=== PATIENT | female | born 1990 | race Caucasian/White ===

== ENCOUNTER 2023-05-26 09:17 | Outpatient (AMB) | payer OTHER, SELFPAY ==
--- NOTE | 2023-05-26 09:28 | MHC.OFFWIV ---
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 Pt c/o R eye irritation.Pt states that its very painful and burning it started yesterday. Allergies amoxicillin Allergy (Verified 05/26/23 10:15) Vomiting morphine Allergy (Verified 05/26/23 10:15) full body paralysis Medication List - Last Reconciled 05/26/23 by Jony Baires MD erythromycin 0.5 inches ophthalmic (eye) TID Do you need a note to return to daycare/school/sports/work: Yes HPI MIDLEVEL PROVIDER/right eye irritation(lobby) HPI Details 32-year-old female presents to the office for a sick visit. Patient is reporting irritation in the right eye since yesterday. Symptoms started after she removed her contact lenses following along flight. Increased tearing in the right eye. Physical Exam Vital Signs: Last Vital Signs Pulse 74 05/26/23 09:35 BP 94/70 05/26/23 09:35 Pulse Ox 96 05/26/23 09:35 Oxygen Delivery Method Room Air 05/26/23 09:35 BMI result Body Mass Index 27.4 Eyes Other: Right eye: Conjunctival congestion. Corneas clear. No digital tenderness. Fluoro uptake is positive at the 6 o'clock position. Assessment & Plan Assessment & Plan (1) Corneal abrasion due to contact lens: Code(s): H18.829 - Corneal disorder due to contact lens, unspecified eye Qualifiers: Laterality: right Qualified Code(s): H18.821 - Corneal disorder due to contact lens, right eye Plan To not use contact lenses till all symptoms subside. Patient was instructed to follow-up here tomorrow for a recheck on the right eye. Erythromycin ointment has been called in. To be used 3 times a day. Medications: New erythromycin 0.5 inches ophthalmic (eye) TID 1 g 0RF Coding Level of Care Code New Pt Level 3 (61543) Diagnoses Corneal abrasion of right eye due to contact lens H18.821 Laterality: right
[2023-05-26 09:35] VITALS: BP 94/70; PULSE 74; O2SAT 96; BMI 27.4
== END 2023-05-26 10:25 | disposition home or self-care (01) ==
PROVIDERS: Visit Provider Internal Medicine
DX: H18.821 Corneal disorder due to contact lens, right eye (principal)
CPT/HCPCS: 99203

== ENCOUNTER 2023-05-27 09:40 | Outpatient (AMB) | payer OTHER, SELFPAY ==
--- NOTE | 2023-05-27 11:31 | MHC.OFFWIV ---
Intake Vital Signs 05/27/23 11:31 Height 5 ft 6 in Intake Visit Reasons: Follow up/Per Dr. Dorsey [phone] Allergies amoxicillin Allergy (Verified 05/26/23 10:15) Vomiting morphine Allergy (Verified 05/26/23 10:15) full body paralysis HPI Follow up/Per Dr. Dorsey [phone] HPI Details Patient was seen for a quick recheck. She reports 75% improvement in symptoms. It is not tearing or burning as yesterday. Physical Exam Eyes Other: Right eye: Mild erythematous congestion. No fluoro uptake. Assessment & Plan Assessment & Plan (1) Corneal abrasion: Code(s): S05.00XA - Injury of conjunctiva and corneal abrasion without foreign body, unspecified eye, initial encounter Plan Symptoms have resolved. Continue erythromycin ointment for 1 more day. Coding Level of Care Code Est Pt Level 3 (43708) Diagnoses Corneal abrasion S05.00XA
== END 2023-05-27 11:55 | disposition home or self-care (01) ==
PROVIDERS: Visit Provider Internal Medicine
DX: S05.00XA Injury of conjunctiva and corneal abrasion without foreign body, unspecified eye, initial encounter (principal)
CPT/HCPCS: 99213